=== PATIENT | female | born 1945 | race Asian ===

== ENCOUNTER 2016-10-20 09:29 | Emergency (ER) | payer OTHER ==
[~2016-10-20] VITALS: Ht 154.9 cm; Wt 59.0 kg
[2016-10-20] MEDS ORDERED: LOSA25TA21 PO (09:35)
[2016-10-20] MEDS ORDERED: NAPR220T57 PO (09:35)
[2016-10-20] MEDS ORDERED: HYDR25TA PO (09:35)
[2016-10-20 09:41] LABS: GLUCOSE,POINT OF CARE 124 MG/DL (70-110)
[2016-10-20] MEDS ORDERED: HYDROCODONE/ACETAMINOPHEN 10-325 MG TABLET PO ONE (10:45)
[2016-10-20 12:21] VITALS: BP 148/74
== END 2016-10-20 12:58 | disposition home or self-care (01) ==
LOC: EMS 09:30
DX: S82.002A Unspecified fracture of left patella, initial encounter for closed fracture (principal); M25.562 Pain in left knee; I10 Essential (primary) hypertension; E78.00 Pure hypercholesterolemia, unspecified; W01.0XXA Fall on same level from slipping, tripping and stumbling without subsequent striking against object, initial encounter; Y93.89 Activity, other specified; Y92.009 Unspecified place in unspecified non-institutional (private) residence as the place of occurrence of the external cause; Y99.9 Unspecified external cause status
CPT/HCPCS: 29505; 82962; 99284

== ENCOUNTER 2019-09-06 17:54 | Emergency (ER) | payer MEDICARE, MEDICAID ==
[~2019-09-06] VITALS: Ht 154.9 cm; Wt 63.6 kg
[~2019-09-06 17:54] MED LIST: HYDR25TA PO; LOSA25TA41 PO; NAPR220T57 PO
[2019-09-06] MEDS ORDERED: ACETAMINOPHEN 500 MG TABLET PO ONE (20:15)
[2019-09-06] MEDS ORDERED: AMLO5TAB66 PO (20:16)
[2019-09-06 21:22] VITALS: BP 148/88
== END 2019-09-06 21:30 | disposition home or self-care (01) ==
LOC: EMS 18:01
DX: M16.0 Bilateral primary osteoarthritis of hip (principal); I10 Essential (primary) hypertension; E78.00 Pure hypercholesterolemia, unspecified
CPT/HCPCS: 72170

== ENCOUNTER 2020-07-16 14:10 | Emergency (ER) | payer MEDICARE, MEDICAID ==
[~2020-07-16] VITALS: Ht 154.9 cm; Wt 61.4 kg
[~2020-07-16 14:10] MED LIST changes: +AMLO5TAB66 PO; +HYDR-1475 PO; -HYDR25TA PO; +LOSA25TA21 PO; -LOSA25TA41 PO
[2020-07-16] MEDS ORDERED: IBUPROFEN 600 MG TABLET PO ONE (15:15)
[2020-07-16] MEDS ORDERED: ACETAMINOPHEN/CODEINE 300-30 MG TABLET PO ONE (15:15)
[2020-07-16] MEDS ORDERED: BACLOFEN 10 MG TABLET PO ONE (15:15)
[2020-07-16 16:25] LABS: BASOPHILS % (AUTO) 0.8 % (0.0-2.0); EOSINOPHILS % (AUTO) 3.8 % (1.0-6.0); HEMATOCRIT 35.5 % (36-46); HEMOGLOBIN 12.3 g/dL (12.0-16.0); LYMPHOCYTES # (AUTO) 0.9 K/uL (1.0-4.8); LYMPHOCYTES % (AUTO) 16.7 % (22.0-44.0); MEAN CORPUSCULAR HGB CONC 34.7 G/dL (31.0-37.0); MEAN CORPUSCULAR VOLUME 84 fL (80-100); MONOCYTES # (AUTO) 0.6 K/uL (0.1-1.0); MONOCYTES % (AUTO) 11.7 % (2.0-9.0); NEUTROPHILS # (AUTO) 3.5 K/uL (1.8-7.7); PLATELET COUNT (AUTO) 208 K/uL (150-450); RED BLOOD CELL COUNT(AUTO) 4.24 MIL/uL (4.00-5.20); RED CELL DISTRIBUTION WIDTH 13.4 % (11.5-14.5)
[2020-07-16 16:26] LABS: CALCIUM, TOTAL 10.2 mg/dL (8.8-10.5); CREATININE 1.08 mg/dL (0.60-1.30); POTASSIUM 3.7 mmol/L (3.5-5.1)
[2020-07-16 16:31] LABS: ALBUMIN 3.5 g/dL (3.4-5.0); BILIRUBIN,TOTAL 0.2 mg/dL (0.1-1.0); TOTAL PROTEIN, SERUM 6.9 g/dL (6.4-8.2)
[2020-07-16 17:08] LABS: APPEARANCE,URINE CLOUDY (CLEAR); BILIRUBIN,URINE NEGATIVE (NEGATIVE); GLUCOSE, URINE (UA) NEGATIVE (NEGATIVE); KETONES,URINE NEGATIVE (NEGATIVE); LEUKOCYTE ESTERASE ,URINE LARGE (NEGATIVE); NITRATE,URINE NEGATIVE (NEGATIVE); OCCULT BLOOD,URINE MODERATE (NEGATIVE); PROTEIN,URINE SEE CONFIRM (NEGATIVE); UROBILINOGEN,URINE 0.2 mg/dL (<=1.0)
[2020-07-16 17:59] LABS: SULFOSALICYLIC ACID,URINE 4+ (Negative)
[2020-07-16 18:03] LABS: WBC,URINE >100 /HPF (0-5)
[2020-07-16 18:04] LABS: BACTERIA,URINE Moderate /HPF (None Seen); SQUAMOUS EPITHELIAL CELL,UR Few /LPF (None Seen)
[2020-07-16 18:20] VITALS: BP 141/72
[2020-07-16] MEDS ORDERED: LEVOFLOXACIN 500 MG TABLET PO ONE (18:30)
[2020-07-16] MEDS ORDERED: CEPHALEXIN MONOHYDRATE 500 MG CAPSULE PO ONE (18:30)
== END 2020-07-16 18:46 | disposition home or self-care (01) ==
LOC: EMS 14:10
DX: N39.0 Urinary tract infection, site not specified (principal); K59.00 Constipation, unspecified; E78.00 Pure hypercholesterolemia, unspecified; I10 Essential (primary) hypertension
CPT/HCPCS: 74176; 87086

== ENCOUNTER 2022-03-07 09:58 | Emergency (ER) | payer MEDICARE, MEDICAID ==
[~2022-03-07] VITALS: Ht 157.5 cm; Wt 61.4 kg
[~2022-03-07 09:58] MED LIST changes: -HYDR-1475 PO; +HYDR25TA2 PO; +LOSA-381 PO; -LOSA25TA21 PO
[2022-03-07] MEDS ORDERED: CALC-1275 PO (10:13)
[2022-03-07] MEDS ORDERED: METHOCARBAMOL 500 MG TABLET PO ONE (12:00)
[2022-03-07] MEDS ORDERED: GABAPENTIN 300 MG CAPSULE PO ONE (12:00)
[2022-03-07] MEDS ORDERED: KETOROLAC TROMETHAMINE 30 MG/ML VIAL IM ONE (12:00)
[2022-03-07] MEDS ORDERED: GABA-1181 PO (12:39)
[2022-03-07] MEDS ORDERED: METH-659 PO (12:39)
[2022-03-07 12:57] VITALS: BP 156/85
== END 2022-03-07 13:09 | disposition home or self-care (01) ==
LOC: EMS 09:58
DX: M54.41 Lumbago with sciatica, right side (principal); E78.00 Pure hypercholesterolemia, unspecified; I10 Essential (primary) hypertension
CPT/HCPCS: 96372; 99283; J1885

== ENCOUNTER 2022-06-04 02:00 | Emergency (ER) | payer MEDICARE, MEDICAID ==
[~2022-06-04] VITALS: Ht 152.4 cm; Wt 70.0 kg
[~2022-06-04 02:00] MED LIST changes: +CALC-1275 PO; +GABA-1181 PO; +METH-659 PO
[2022-06-04] MEDS ORDERED: IBUPROFEN 600 MG TABLET PO ONE (03:00)
[2022-06-04] MEDS ORDERED: ACETAMINOPHEN 500 MG TABLET PO ONE (03:00)
[2022-06-04 05:09] VITALS: BP 170/83
== END 2022-06-04 05:20 | disposition home or self-care (01) ==
LOC: EMS 02:03
DX: M25.562 Pain in left knee (principal); M25.561 Pain in right knee; F32.A Depression, unspecified; E78.00 Pure hypercholesterolemia, unspecified; M54.30 Sciatica, unspecified side; N20.0 Calculus of kidney
CPT/HCPCS: 99283